=== PATIENT | male | born 1950 | race Caucasian/White ===

== ENCOUNTER 2016-06-25 05:58 | Emergency (ER) | payer MEDICARE ==
[~2016-06-25] VITALS: Ht 185.4 cm; Wt 77.3 kg
[~2016-06-25 05:58] MED LIST: FLUN25SP NS; IBUP400T22 PO; LORA10CA PO
[2016-06-25 06:00] VITALS: BP 181/89; PULSE 70; RESP 16
--- NOTE | 2016-06-25 06:19 | ED.REPORT ---
HPI-General Illness Date of Service Jun 25, 2016 ED Provider: Gabino Patel MD A 66 year old male presents to the ED complaining intermittent right flank that began around 0430 this morning. He reports that the pain woke him this morning. He describes his initial pain as a "dull pull" that became increasingly worse as the morning progressed. The pain comes in waves and does not radiate. Patient has also been experiencing nausea. He denies any similar previous episodes of pain. Nothing exacerbates the pain. His last BM was yesterday morning. He denies dysuria, hematuria, vomiting or history of kidney stones or abdominal surgeries. Nursing Notes Stated Complaint: KIDNEY/BACK PAIN Chief Complaint: Back Pain or Injury Nursing Notes Reviewed: Yes Allergies: Coded Allergies: sulfanilamide (Verified Allergy, Unknown, 06/25/16) Scheduled Flunisolide (Flunisolide) 25 Ml [place] 25 ML NS DAILY Loratadine (Claritin) 10 Mg Capsule 10 MG PO DAILY Tamsulosin (Flomax) 0.4 Mg Capsule 0.4 MG PO DAILY Scheduled PRN Hydrocodone-Acetaminophen 5-325 mg (Hydrocodone-Acetaminophen 5-325 mg) 1 Each Tablet 1 TABLET PO Q4H PRN PRN For Pain Ibuprofen (Ibuprofen) 400 Mg Tablet 400 MG PO QID PRN PRN For Pain General Time Seen by MD: 06:07 Chief Complaint Other (Right flank pain) Hx Obtained From: Patient Arrived By: Walk-in Sudden in Onset?: Yes Onset Occurred: 1 - 4 hours ago Symptom Duration: Since onset Location: : Back Quality: Painful Radiation: : Does not radiate Severity: Current: Mild Severity: Maximum: Moderate Associated with: Reports: Nausea, Denies: Abdominal pain, Fever, Vomiting Pertinent Negative: Pt denies other symptoms Pertinent Negative: Exacerbated by nothing Recent Healthcare: No recent doctor visit, No recent hospitalization Past Medical History Past Medical History Acid reflux; otherwise healthy Past Surgical History Spinal stenosis Hernia repair Smoking History Never Smoker Social History Other Social History: Good social support, Local resident Occupation Teaches at [employer] Status Independent Review of Systems Full Review of Systems Constitutional: Denies: Chills, Fever Respiratory: Denies: Shortness of breath Cardiovascular: Denies: Chest pain GI: Reports: Nausea, Denies: Abdominal pain, Vomiting Male: Reports Flank pain (Right flank pain ), Denies Dysuria, Denies Hematuria Neurologic: Denies: Change LOC Complete sys rev & neg: except as marked. Physical Exam Vital Signs Vital Signs Date Time Temp Pulse Resp B/P Pulse Ox O2 Delivery O2 Flow Rate FiO2 06/25/16 09:18 81 16 143/69 98 06/25/16 06:00 36.0 70 16 181/89 Room Air Initial VS: Reviewed Neck: Supple, Non-tender, Full range of motion Skin: Warm, Dry, No cyanosis Neurologic: Alert, Oriented, Nonfocal Psychiatric: Mood/affect normal, Behavior normal, Normal thought content General/Constitutional: Awake, Alert Head / Eyes: Atraumatic, Normocephalic, PERRL ENT: Atraumatic, Airway patent Mouth: Positive: Mucous membranes dry Respiratory / Chest: Atraumatic, Breath sounds NL, Breath sounds = bilat Cardiovascular: Heart rate NL, Regular rhythm, Heart sounds NL, No gallop, No murmurs, No rubs Abdomen: Atraumatic, Soft, Non-tender, No distention Organomegaly / Mass / Hernia: Positive: Hernia inguinal R (palpable ), Negative: Hernia is incarcerated Back: Atraumatic, Inspection NL No percussive flank tenderness Upper Extremities Upper Extremity / MS: Atraumatic, Neurologic intact, Vascular intact Lower Extremity / Pelvis / MS: Atraumatic, Neurologic intact, Vascular intact Interpretation & Diagnostics RIGHT FLANK CT: Read by Radiology IMPRESSION: 1. Small obstructing 3 mm distal right ureterovesicular junction stone with associated mild hydroureteronephrosis. 2. Multiple additonal smaller non-obstructing bilateral renal stones. Dictated by: Nazario Cavazos M.D. on 06/25/2016 at 8:38 Lab Results Interpretation Result Diagram: 06/25/16 0635 06/25/16 0635 Test 06/25/16 06:35 White Blood Count 4.5th/mm3 (3.8-10.1) Red Blood Count 5.24mil/mm3 (4.40-5.80) Hemoglobin 16.7g/dL (13.8-17.2) Hematocrit 48.8% (41.0-50.0) Mean Corpuscular Volume 93.1fL (81-100) Mean Corpuscular Hemoglobin 31.9pg (27.0-35.0) Mean Corpuscular Hemoglobin Concent 34.2% (32.0-37.0) Red Cell Distribution Width 13.2% (12.3-15.4) Platelet Count 153bil/L (150-400) Neutrophils (%) (Auto) 71.4% (40-74) Lymphocytes (%) (Auto) 20.4% (14-46) Monocytes (%) (Auto) 5.6% (4-12) Eosinophils (%) (Auto) 2.2% (0-5) Basophils (%) (Auto) 0.4% (0-3) Sodium Level 141mEq/L (134-144) Potassium Level 4.1mEq/L (3.5-5.2) Chloride Level 103mEq/L (97-108) Carbon Dioxide Level 27mmol/L (18-29) Blood Urea Nitrogen 15mg/dL (8-27) Creatinine 0.95mg/dL (0.76-1.27) Estimat Glomerular Filtration Rate 84mL/min (>59) Glucose Level 131mg/dL (60-99) Calcium Level 8.8mg/dL (8.5-10.1) Magnesium Level 1.9mg/dL (1.6-2.6) Total Bilirubin 1.1mg/dL (0.0-1.2) Aspartate Amino Transf (AST/SGOT) 19U/L (0-50) Alanine Aminotransferase (ALT/SGPT) 15U/L (0-44) Alkaline Phosphatase 45U/L (25-160) Total Protein 7.0g/dL (6.4-8.4) Albumin 4.1g/dL (3.4-5.0) Lipase 41U/L (13-60) Hold Cheng Top Tube Received (Received) Re-Eval/Medical Decision Med Decision/Clinical Course In summary the patient is a 66 year old male presents to the ED complaining intermittent right flank that began around 0430 this morning. He reports that the pain woke him this morning. He describes his initial pain as a "dull pull" that became increasingly worse as the morning progressed. The pain comes in waves. Upon arrival the patient appears uncomfortable otherwise afebrile with stable vital signs and in no apparent distress. The patient's pain was treated with IV fluids and Toradol with good effect. He was nontoxic in appearance. CBC and CMP were unremarkable. CT scan is obtained above demonstrated a 3 mm ureteral stone with mild associated hydronephrosis. Patient's overall examination, history presentation is consistent with ureteral colic. Patient has been prescribed Odem for pain and provided with a urine strainer and referral to urology. There are no findings suggestive of infected stone or acute surgical intra-abdominal process. The patient did not urinate during his emergency department stay I discussed with him that we could not definitively rule out infected stone without obtaining a urine specimen. He stated that he did not want to wait in the emergency department until he could provide urine. He was discharged in good condition. He was prescribed Flomax and will take ibuprofen in addition to Odem for pain. Follow-up and return precautions were reviewed in detail and he was discharged in stable condition. Time of Eval: 08:46 Patient Status: Condition improved Re-Evaluation/Progress Note: Patient is rechecked. He reports that he is feeling much better after the pain medication. Patient expressed concern about the plan to discharge with pain medication. He is informed of his lab results, CT results and diagnosis. All of the patient's questions are addressed. Patient agrees with plan to follow up with urology. Counseled Regarding: Diagnosis, Lab results, Need for follow-up, When/why to return to ED Discharge & Departure Primary Impression: Kidney stone Additional Impressions: Right ureteral stone Renal colic Disposition: Home Discharge Condition All VS Reviewed: Yes Condition: Stable Patient Instructions: Nephrolithiasis (ED) Additional Instructions: Thank you for seeking care at emergency room. It is difficult for us to make definitive diagnoses in the ED but we believe that you are experiencing a kidney stone. Our primary goal today in the ED was to evaluate you for any life-threatening conditions. Your evaluation was reassuring. You will be discharged with a prescription for pain medication and Flomax. Please take this medications as directed. Please call later today to arrange for a follow-up appointment with the urologists. Please use a urine strainer in order to know when your stone has passed. You should return to the ED immediately if you develop increasing/ uncontrollable pain, fevers, vomiting, cough, shortness of breath, chest pain, lightheadedness, weakness or any other concerning signs or symptoms. Thank you for letting us partake in your care today. Narcotic Pain Medicine You have been prescribed a narcotic for pain relief. These drugs are usually combined with acetaminophen (Tylenol#3, Percocet, Darvocet, Anexsia, Vicodin) or aspirin (Empirin#3, Percodan, Synalogs-DC) for increased effect. Narcotics act on the central nervous system to reduce pain; they also impair mental alertness and physical abilities. We advise you not to drink alcohol, drive a car, or operate dangerous equipment when you are taking theses drugs. You can lessen stomach irritation from your medicine by taking it with meals or a full glass of water. Common side effects of narcotics are: Nausea and vomiting, heartburn, consitpation, dizziness, sleepiness, and mood changes. If you have bothersome side effects or symptoms of an allergic reaction (itching, hives, rash), stop taking your medicine and call your doctor or the emergency room right away. Please keep your narcotic medicine well out of the reach of children. Referrals: Jigar Prasad MD (PCP) Radha Arreola MD Scribe Attestation Portions of this note were transcribed by Jose Olvera. I, Dr. Patel personally performed the history, physical exam and medical decision-making; I reviewed and confirmed the accuracy of the information in the transcribed note. Signed by: Jose Olvera, 06/25/16, 0900. copies to: Jigar Prasad MD, Beck O MD Jun 25, 2016 06:19 JOSE OLVERA Jun 25, 2016 07:10
[2016-06-25 06:47] LABS: BASOPHILS % (AUTO) 0.4 % (0-3); EOSINOPHILS % (AUTO) 2.2 % (0-5); MONOCYTES % (AUTO) 5.6 % (4-12); Mean Corpuscular Hemoglobin 31.9 pg (27.0-35.0); Mean Corpuscular Volume 93.1 fL (81-100); NEUTROPHILS % (AUTO) 71.4 % (40-74); Platelet Count 153 bil/L (150-400)
[2016-06-25] MEDS ORDERED: 0.9% Sodium Chloride 1,000 ML IV ONE (07:12)
[2016-06-25 07:14] LABS: Magnesium 1.9 mg/dL (1.6-2.6)
[2016-06-25] MEDS ORDERED: Ondansetron 2 mg/mL 2 mL Inj IVPUSH ONE (07:15)
--- NOTE | 2016-06-25 08:40 | DRSVH ---
PROCEDURE: CT KUB ([id number]) INDICATIONS: R flank pain TECHNIQUE: Noncontrast 5 mm thick sections acquired from the diaphragms to the symphysis. 5 mm thick coronal an d sagittal reformats were then performed. For radiation dose reduction, the following was used: aut omated exposure control, adjustment of mA and/or kV according to patient size. COMPARISON: None. FINDINGS: Image quality: Excellent. Lung bases: There is mild dependent atelectasis. A small focus of calcification along the right nika diaphragm is likely related to prior infection or trauma. Heart size is normal. Urinary system: There is a small 3 mm stone in the distal right ureter just proximal to the right ur eterovesicular junction with associated mild right hydroureteronephrosis. There is associated mild pe rinephric and periureteral stranding. There are 2 additonal punctate non-obstructing right renal ston es and a non-obstructing 3 mm left renal stone. Bladder wall thickness is normal; no calcified bladde r stones. Other solid organs: Liver and spleen are normal in size. Gallbladder appears within normal limits. Pancreas is normal in contours. No adrenal nodules. Peritoneum and bowel: Unenhanced bowel loops demonstrate normal wall thickness and caliber. The keysha endix is normal in appearance. No free fluid or air. Nodes and vessels: No retroperitoneal or mesenteric adenopathy by size criteria. Aorta and inferior vena cava are normal in caliber. Abdominal wall: No ventral hernias. Pelvis: No free pelvic fluid. There is a small fat-containing right inguinal hernia. No inguinal ad enopathy. Bones: No suspicious bony lesions. No vertebral body compression fractures. IMPRESSION: 1. Small obstructing 3 mm distal right ureterovesicular junction stone with associated mild hydrouret eronephrosis. 2. Multiple additonal smaller non-obstructing bilateral renal stones. Dictated by: Nazario Cavazos M.D. on 06/25/2016 at 8:38 Approved by: Nazario Cavazos M.D. on 06/25/2016 at 8:38
[2016-06-25] MEDS ORDERED: TAMS0.4C98 PO (08:45)
[2016-06-25] MEDS ORDERED: HYDR-4003 PO (08:47)
[2016-06-25 09:18] VITALS: BP 143/69; PULSE 81; RESP 16; O2SAT 98
== END 2016-06-25 08:49 | disposition home or self-care (01) ==
LOC: SED 05:58
DX: N20.0 Calculus of kidney (principal); N20.1 Calculus of ureter; Z88.2 Allergy status to sulfonamides
CPT/HCPCS: 36415; 74176; 80053; 83690; 83735; 85025; 96361; 96374; 96375; 99285; J2405; J7030